=== PATIENT | male | born 1950 | race Hispanic/Latino ===

== ENCOUNTER 2020-11-09 08:28 | Day surgery (SDC) | payer BC ==
[2020-11-03 11:57] LABS: BASOPHILS % (AUTO) 0.3 % (0.0-5.0); EOSINOPHILS % (AUTO) 0.3 % (0.0-8.0); HEMATOCRIT 45.6 % (42-54); LYMPHOCYTES % (AUTO) 19.7 % (21.0-51.0); MEAN CORPUSCULAR HEMOGLOBIN 32.7 pg (27.0-33.0); MEAN CORPUSCULAR HGB CONC 32.7 g/dL (32.0-36.0); MEAN CORPUSCULAR VOLUME 100.2 fL (79-99); MONOCYTES % (AUTO) 8.4 % (3.0-13.0); NEUTROPHILS % (AUTO) 71.1 % (40.0-77.0); PLATELET COUNT (AUTO) 211 K/uL (130-400); RED BLOOD CELL COUNT(AUTO) 4.55 MIL/uL (4.50-6.20); RED CELL DISTRIBUTION WIDTH 13.1 % (11.0-15.5); WHITE BLOOD COUNT (AUTO) 8.7 K/uL (4.8-10.8)
[2020-11-03 11:58] LABS: APPEARANCE,URINE Clear (CLEAR); BILIRUBIN,URINE Negative (NEGATIVE); COLOR,URINE Yellow (YELLOW); GLUCOSE, URINE (UA) Negative (NEGATIVE); KETONES,URINE Negative (NEGATIVE); LEUKOCYTE ESTERASE ,URINE Negative (NEGATIVE); NITRATE,URINE Negative (NEGATIVE); OCCULT BLOOD,URINE Negative (NEGATIVE); PROTEIN,URINE Negative (NEGATIVE)
[2020-11-03 12:03] LABS: CREATININE 1.1 mg/dL (0.5-1.5); POTASSIUM 4.3 mmol/L (3.5-5.1)
[2020-11-05 10:25] VITALS: BP 107/59
[2020-11-09] VITALS (15 sets, daily range): BP systolic 102–117; BP diastolic 66–78
[~2020-11-09] VITALS: Ht 170.2 cm; Wt 71.6 kg
[~2020-11-09 08:28] MED LIST: GENTAMICIN 80 MG/NS 100 ML PB 100 ML IV SCH; LEVO500P29 PO; TAMS-1 PO
[2020-11-09] MEDS ORDERED: LACTATED RINGERS 1000ML 1,000 ML IV ONE (09:50)
[2020-11-09] MEDS ORDERED: CEFTRIAXONE 1G VIAL ONE ×2 (09:50→10:58)
[2020-11-09] MEDS ORDERED: GLYCOPYRROLATE 1 MG/5 ML SYRINGE ONE (10:30)
[2020-11-09] MEDS ORDERED: ONDANSETRON 4MG INJ ONE (10:30)
[2020-11-09] MEDS ORDERED: SUCCINYLCHOLINE CHLORIDE 20 MG/ML 10 ML VIAL ONE (10:30)
[2020-11-09] MEDS ORDERED: NEOSTIGMINE 5MG/5ML SYR IV ONE (10:30)
[2020-11-09] MEDS ORDERED: DEXAMETHASONE SOD PHOSPHATE 10MG/ML 1ML VIAL ONE (10:30)
[2020-11-09] MEDS ORDERED: LIDOCAINE PF 100MG/5ML (2%) SYRINGE 5ML ONE (10:30)
[2020-11-09] MEDS ORDERED: PROPOFOL 10 MG/ML 20ML VIAL IV ONE (10:30)
[2020-11-09] MEDS ORDERED: FENTANYL CITRATE PF 50 MCG/1 ML 2ML VIAL ONE (10:30)
[2020-11-09] MEDS: CEFTRIAXONE 1G VIAL IVP ONE ×2 (10:31→10:58)
[2020-11-09] MEDS ORDERED: MIDAZOLAM HCL 1 MG/ML 2ML VIAL ONE (10:31)
[2020-11-09] MEDS ORDERED: ROCURONIUM 10MG/1ML SYR 10 MG/ML ML ONE (10:31)
== END 2020-11-09 12:55 | disposition home or self-care (01) ==
LOC: DAH 08:28
PROVIDERS: ATTEND Urology
DX: R97.20 Elevated prostate specific antigen [PSA] (principal); Z20.822 Contact with and (suspected) exposure to COVID-19; D29.1 Benign neoplasm of prostate; N41.1 Chronic prostatitis; Z80.42 Family history of malignant neoplasm of prostate
CPT/HCPCS: 36415; 55700; 76872; 80048; 81003; 85025; 87088; 87426; 93005; A4215 ×2; A4221; A4222; A4223; A4600 ×2; A4663; J0330; J0696 ×2; J1100; J1580; J2001; J2250; J2405; J2704; J2710; J3010; J3490; J7120 ×2; 76942